=== PATIENT | female | born 1970 | race Two or more races ===

== ENCOUNTER 2018-07-31 14:33 | Emergency (ER) | payer SELFPAY ==
[~2018-07-31] VITALS: Ht 154.9 cm; Wt 58.1 kg
[2018-07-31 16:26] VITALS: BP 189/102
[2018-07-31] MEDS ORDERED: BACITRACIN TOP OINT 1 UD PKG TOP ONE (17:15)
== END 2018-07-31 17:19 | disposition home or self-care (01) ==
LOC: ER 14:33
DX: S60.011A Contusion of right thumb without damage to nail, initial encounter (principal); W23.0XXA Caught, crushed, jammed, or pinched between moving objects, initial encounter; Y93.89 Activity, other specified; Y99.8 Other external cause status; Y92.89 Other specified places as the place of occurrence of the external cause
CPT/HCPCS: 11740; 73130